=== PATIENT | female | born 1955 | race African-American/Black ===

== ENCOUNTER 2022-04-16 06:52 | Observation (INO) | payer MEDICARE ==
[2022-04-11 10:55] LABS: BASOPHILS % 0.6 % (0.0-1.0); EOSINOPHILS # (AUTO) 0.3 (0.0-0.4); EOSINOPHILS % 4.5 % (0.0-6.0); HEMATOCRIT 39.8 % (34.2-44.1); HEMOGLOBIN 12.3 g/dL (12.0-16.0); LYMPHOCYTES # (AUTO) 2.1 (1.0-3.2); LYMPHOCYTES % 30.6 % (18.0-39.1); MEAN CORPUSCULAR HEMOGLOBIN 29.9 pg (28-32); MEAN CORPUSCULAR HGB CONC 30.9 g/dL (31-35); MEAN CORPUSCULAR VOLUME 96.8 fL (81-99); MONOCYTES # (AUTO) 0.5 (0.2-0.8); MONOCYTES % 6.5 % (4.4-11.3); NEUTROPHILS % 57.7 % (38.7-80.0); PLATELET COUNT 217 x10e3/uL (140-360); RED BLOOD COUNT 4.11 x10e6/uL (3.6-5.1)
[2022-04-11 11:35] LABS: ANION GAP 10.7 mmol/L (8-16); CALCIUM 9.4 mg/dL (8.4-10.2); CREATININE, SERUM 0.96 mg/dL (0.57-1.11); POTASSIUM 3.7 mmol/L (3.5-5.1)
[~2022-04-16] VITALS: Ht 162.6 cm; Wt 88.0 kg
[~2022-04-16 06:52] MED LIST: APPLE CIDER VI300 MG PO; ATORVASTATIN CA20 MG PO; LOSARTAN POTASS25 MG PO; LYRICA50 MG PO; MULTIVITAMIN1 EACH PO; SODIUM CHLORIDE 0.9% 500ML 0 ML ONE; TRANEXAMIC ACID 0 ML ONE; TURMERIC500 M1 PO; TYLENOL ARTHRITIS PO; VITAMIN D310 MCG PO; Vancomycin IV 0 MG ONE
[2022-04-16] MEDS ORDERED: TRANEXAMIC ACID 20 ML ONE (07:24)
[2022-04-16] MEDS ORDERED: Vancomycin IV 1,000 MG ONE (07:24)
[2022-04-16] MEDS ORDERED: GABAPENTIN 300 MG CAP ONE (07:31)
[2022-04-16] MEDS ORDERED: DEXAMETHASONE SOD PHOS 10 MG/1 ML VIAL ONE (07:31)
[2022-04-16] MEDS ORDERED: HYDROMORPHONE 1MG/1ML INJ ONE ×2 (09:12→10:40)
[2022-04-16] MEDS ORDERED: DOCUSATE SODIUM 100 MG CAP PO PRN (09:45)
[2022-04-16] MEDS ORDERED: ONDANSETRON HCL INJ 2MG/ML 2ML 2 MG/ML VIAL IV PRN (09:45)
[2022-04-16] MEDS ORDERED: ACETAMINOPHEN 650 MG SUPP PR PRN (09:45)
[2022-04-16] MEDS ORDERED: SODIUM CHLORIDE 0.9% 1000ML 1,000 ML IV SCH (09:45)
[2022-04-16] MEDS ORDERED: HYDROCODONE/APAP 5MG-325MG TAB PO PRN (09:45)
[2022-04-16] MEDS ORDERED: HYDROCODONE/APAP 7.5MG-325MG 1 EA TAB PO PRN (09:45)
[2022-04-16] MEDS ORDERED: DIPHENHYDRAMINE HCL INJ 50 MG/ML VIAL IV PRN (09:45)
[2022-04-16] MEDS ORDERED: KETOROLAC TROMETHAMINE 30 MG/ML VIAL IV PRN (09:45)
[2022-04-16] MEDS ORDERED: ZOLPIDEM TARTRATE 5 MG TAB PO PRN (09:45)
[2022-04-16] MEDS ORDERED: FENTANYL CITRATE/PF 100MCG/2 ML INJ ONE ×2 (10:06→12:25)
[2022-04-16] MEDS ORDERED: MIDAZOLAM HCL 2 MG/2 ML VIAL ONE ×2 (10:15→12:25)
[2022-04-16] MEDS ORDERED: HYDRALAZINE HCL 20 MG/ML VIAL ONE (11:08)
[2022-04-16] MEDS ORDERED: ACETAMINOPHEN 1000 MG/100 ML 100 ML IV ONE (11:20)
[2022-04-16 11:40] VITALS: BP 145/99
[2022-04-16 12:04] VITALS: BP 145/99
[2022-04-16] MEDS ORDERED: POVIDONE IODINE 0.05% 0.05 % ML PO ONE (13:07)
[2022-04-16] MEDS ORDERED: ONDANSETRON HCL INJ 2MG/ML 2ML 2 MG/ML VIAL ONE (13:07)
[2022-04-16] MEDS ORDERED: SEVOFLURANE INHAL SOLN 250 ML PEN BTL ONE (13:07)
[2022-04-16] MEDS ORDERED: LIDOCAINE HCL 2% LOCAL INJ 5 ML SDV VIAL INJ ONE (13:07)
[2022-04-16] MEDS ORDERED: PROPOFOL IV EMULSION 10 MG/ML 20 ML VIAL ONE (13:07)
[2022-04-16] MEDS ORDERED: ROPIVACAINE 0.5% 5 MG/ML 30 ML SDV ONE (13:33)
[2022-04-16] MEDS ORDERED: ACETAMINOPHEN 1000 MG/100 ML IV PRN (14:00)
[2022-04-16 16:00] VITALS: BP 148/89
[2022-04-16] MEDS ORDERED: ASPIRIN 325 MG TAB PO SCH (17:00)
== END 2022-04-16 18:15 | disposition home or self-care (01) ==
LOC: OR 06:52 → PACU V 10:00 → MED/SURG 11:34
PROVIDERS: ADMIT Specialist; ATTEND Specialist
DX: M17.11 Unilateral primary osteoarthritis, right knee (principal); E11.9 Type 2 diabetes mellitus without complications; Z88.6 Allergy status to analgesic agent; Z88.5 Allergy status to narcotic agent; F41.9 Anxiety disorder, unspecified; E78.00 Pure hypercholesterolemia, unspecified; Z01.818 Encounter for other preprocedural examination
CPT/HCPCS: 0223U; 27447; 36415 ×2; 71046; 73560; 80048; 82948; 85025; 86850; 86900; 86920; 94799; 97110; 97116 ×2; 97161; 97530; C1713 ×3; C1776 ×2; G0378; J0131; J0171; J0360; J0690; J1100; J1170; J1200; J1885; J2001; J2250; J2405; J2704; J2795; J3010; J3370; J7030; J7040

== ENCOUNTER 2022-04-18 16:00 | Inpatient (IN) | payer MEDICARE ==
[~2022-04-18] VITALS: Ht 162.6 cm; Wt 88.0 kg
[~2022-04-18 16:00] MED LIST changes: -SODIUM CHLORIDE 0.9% 500ML 0 ML ONE; -TRANEXAMIC ACID 0 ML ONE; -Vancomycin IV 0 MG ONE
[2022-04-18] MEDS ORDERED: METFORMIN HCL500 MG PO (20:00)
[2022-04-18] MEDS ORDERED: ONDANSETRON HCL INJ 2MG/ML 2ML 2 MG/ML VIAL IV PRN (20:15)
[2022-04-18 21:00] VITALS: BP 161/86
[2022-04-18 22:46] VITALS: BP 161/86
[2022-04-18] MEDS: ATORVASTATIN 20 MG TAB PO SCH (23:04)
[2022-04-18] MEDS: ACETAMINOPHEN 325 MG TAB PO PRN (23:05)
[2022-04-19] VITALS (8 sets, daily range): BP systolic 133–164; BP diastolic 82–89
[2022-04-19 06:41] LABS: BASOPHILS % 0.3 % (0.0-1.0); EOSINOPHILS # (AUTO) 0.1 (0.0-0.4); EOSINOPHILS % 0.8 % (0.0-6.0); HEMATOCRIT 34.1 % (34.2-44.1); HEMOGLOBIN 10.5 g/dL (12.0-16.0); LYMPHOCYTES # (AUTO) 2.6 (1.0-3.2); MEAN CORPUSCULAR HEMOGLOBIN 29.7 pg (28-32); MEAN CORPUSCULAR HGB CONC 30.8 g/dL (31-35); MEAN CORPUSCULAR VOLUME 96.6 fL (81-99); MONOCYTES % 7.6 % (4.4-11.3); NEUTROPHILS # (AUTO) 9.1 (2.1-6.9); NEUTROPHILS % 71.1 % (38.7-80.0); PLATELET COUNT 239 x10e3/uL (140-360); RED BLOOD COUNT 3.53 x10e6/uL (3.6-5.1); RED CELL DISTRIBUTION WIDTH 12.2 % (11.7-14.4)
[2022-04-19 06:54] LABS: INR 1.06; PROTHROMBIN TIME 14.8 seconds (11.9-14.5)
[2022-04-19 06:55] LABS: PARTIAL THROMBOPLASTIN TIME 38.2 seconds (23.8-35.5)
[2022-04-19 07:09] LABS: ANION GAP 15.2 mmol/L (8-16); CALCIUM 9.2 mg/dL (8.4-10.2); CREATININE, SERUM 0.82 mg/dL (0.57-1.11); POTASSIUM 3.2 mmol/L (3.5-5.1)
[2022-04-19] MEDS: METFORMIN HCL 500 MG TAB PO SCH ×2 (08:30→18:00)
[2022-04-19] MEDS ORDERED: PREGABALIN 50 MG CAP PO SCH (09:00)
[2022-04-19] MEDS: LOSARTAN POTASSIUM 100 MG TAB PO SCH (09:15)
[2022-04-19 10:47] LABS: MAGNESIUM 1.8 MG/DL (1.3-2.1)
[2022-04-19] MEDS ORDERED: POTASSIUM CHLORIDE 20 MEQ TAB CR PO ONE (11:00)
[2022-04-19 11:47] LABS: THYROID STIMULATING HORMONE 0.219 uIU/mL (0.350-4.940)
[2022-04-19] MEDS: ACETAMINOPHEN 325 MG TAB PO PRN (12:20)
[2022-04-19] MEDS ORDERED: SODIUM CHLORIDE 0.9% 1000ML 1,000 ML IV SCH (12:45)
[2022-04-19] MEDS ORDERED: IRON SUCROSE 100 MG in SODIUM CHLORIDE 0.9% 100 ML 100 ML IV SCH (14:00)
[2022-04-19] MEDS ORDERED: SODIUM CHLORIDE 0.9% 1000ML 1,000 ML ONE (16:40)
[2022-04-19] MEDS: ATORVASTATIN 20 MG TAB PO SCH (22:23)
[2022-04-19] MEDS: HYDROCODONE/APAP 10MG-325MG TAB PO PRN (22:24)
[2022-04-19] MEDS: HEPARIN SOD (PORCINE) 5,000 UNIT/ML VIAL SC SCH (22:28)
[2022-04-20 01:09] VITALS: BP 164/84
[2022-04-20 01:10] VITALS: BP 125/75
[2022-04-20] MEDS: HYDROCODONE/APAP 10MG-325MG TAB PO PRN ×2 (03:10→11:50)
[2022-04-20 04:00] VITALS: BP 120/73
[2022-04-20 07:10] LABS: BASOPHILS % 0.4 % (0.0-1.0); EOSINOPHILS # (AUTO) 0.3 (0.0-0.4); EOSINOPHILS % 2.4 % (0.0-6.0); HEMATOCRIT 31.9 % (34.2-44.1); HEMOGLOBIN 9.8 g/dL (12.0-16.0); LYMPHOCYTES # (AUTO) 2.3 (1.0-3.2); LYMPHOCYTES % 22.1 % (18.0-39.1); MEAN CORPUSCULAR HEMOGLOBIN 29.7 pg (28-32); MEAN CORPUSCULAR HGB CONC 30.7 g/dL (31-35); MEAN CORPUSCULAR VOLUME 96.7 fL (81-99); MONOCYTES # (AUTO) 0.9 (0.2-0.8); MONOCYTES % 8.4 % (4.4-11.3); NEUTROPHILS # (AUTO) 6.8 (2.1-6.9); NEUTROPHILS % 66.3 % (38.7-80.0); PLATELET COUNT 275 x10e3/uL (140-360); RED CELL DISTRIBUTION WIDTH 11.9 % (11.7-14.4)
[2022-04-20 07:36] LABS: ANION GAP 14.6 mmol/L (8-16); CALCIUM 8.8 mg/dL (8.4-10.2); CREATININE, SERUM 0.95 mg/dL (0.57-1.11); POTASSIUM 3.6 mmol/L (3.5-5.1)
[2022-04-20 08:00] VITALS: BP 130/89
[2022-04-20] MEDS: METFORMIN HCL 500 MG TAB PO SCH (08:50)
[2022-04-20] MEDS: LOSARTAN POTASSIUM 100 MG TAB PO SCH (08:50)
[2022-04-20 09:00] VITALS: BP 130/89
[2022-04-20] MEDS: HEPARIN SOD (PORCINE) 5,000 UNIT/ML VIAL SC SCH (09:00)
[2022-04-20 13:32] VITALS: BP 143/84
== END 2022-04-20 15:37 | disposition home or self-care (01) | DRG 179 ==
LOC: MED/SURG3 18:54
PROVIDERS: ADMIT Internal Medicine; ATTEND Internal Medicine
DX: U07.1 COVID-19 (principal); E11.9 Type 2 diabetes mellitus without complications; I10 Essential (primary) hypertension; D50.9 Iron deficiency anemia, unspecified; R53.1 Weakness; Z96.651 Presence of right artificial knee joint; Z88.5 Allergy status to narcotic agent; Z88.8 Allergy status to other drugs, medicaments and biological substances; Z79.84 Long term (current) use of oral hypoglycemic drugs
CPT/HCPCS: 36415; 71045; 80048; 82948; 83036; 83540; 83735; 84439; 84443; 84466; 85025; 85610; 85730; 97139; J1644; J1756; J7030